=== PATIENT | female | born 1995 | race Asian ===

== ENCOUNTER 2024-01-08 16:56 | Emergency (ER) | payer OTHER, SELFPAY ==
[2024-01-08 16:59] VITALS: BP 115/80; PULSE 77; RESP 18; TEMP 36.5; O2SAT 98; BMI 25.8
--- NOTE | 2024-01-08 17:03 | ED_ITS ---
HPI - General Adult General Chief complaint: General Medical Stated complaint: needle stick work inj Time Seen by Provider: 01/08/24 16:57 Source: patient Mode of arrival: ambulatory Limitations: no limitations History of Present Illness ED Provider: Sp NEIL HPI narrative: 28-year-old female presents with accidental needlestick to the left dorsal aspect of risks, happened right prior to arrival, patient's stuck herself with a dirty IV needle, patient reports she stuck herself it bled just a little bit. Patient's HIV, hepatitis status is unclear but according to nurse she does not think that patient has any of these. Patient does not have a personal history of HIV or hepatitis-C. She is vaccinated against hepatitis-B. The area was washed immediately after. No history of liver problems. Unlikely she is . Denies numbness and tingling. Related Data Allergies Allergy/AdvReac Type Severity Reaction Status Date / Time No Known Allergies Allergy Verified 01/08/24 17:01 Review of Systems 2 Review of Systems: Yes all other systems are reviewed and are negative [facility] Past Medical History Attestation statement: The following information was validated with the patient. Source: old records reviewed and nursing notes reviewed Social History Social History Advance Directives: No Advance Directives Information Provided: No Physical Exam ED Vital Signs: Vital Signs - 24 hr 01/08/24 16:59 01/08/24 17:45 Temperature 97.7 F 97.7 F Pulse Rate 77 77 Respiratory Rate 18 18 Blood Pressure 115/80 115/80 Pulse Oximetry 98 98 Oxygen Delivery Method Room Air Room Air BMI result Body Mass Index 25.8 vss Appearance: Alert.? Oriented X3.? No acute distress.? Head: Normocephalic, atraumatic, no step-offs or deformities Eyes: Pupils equal, round and reactive to light.? ENT: Pharynx normal.? Neck: Normal inspection.? Neck supple.? CVS: Normal heart rate and rhythm.? Pulses normal.? Respiratory: No respiratory distress.? Breath sounds normal.? Skin: Skin warm and dry.? Normal skin color.? Normal skin turgor.? + small puncture to left wrist dorsal aspect Extremities: /5 strength to bilateral upper and lower extremities Neuro: Oriented X 3.? No motor deficit.? No sensory deficit. CN 2-12 intact Course Course Course Narrative: RME: [employer] by AYANA Saldana. 28-year-old female presents to ED for needlestick. 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 Patient states she cleaned wound right after. Patient came to the ED to be evaluated. Patient states sources being tested. Labs ordered. Reevaluation(s) Reevaluation #1: I did have a long conversation with patient about options on post exposure prophylaxis meds taking them now versus waiting. Patient would like to wait until patient is results arrived, patient did give consent to obtain blood work to check his HIV and hepatitis panel. Patient will get blood work done will call her if any of the blood work is abnormal. She will give Boostrix shot today as she has not up-to-date. Educated patient on diagnosis and treatment plan, answered all question, patient verbalizes understanding. At this time patient will be discharged home, advised to return with new or worsening symptoms. Educated on worrisome signs and symptoms and when to return. At this time I feel comfortable discharge home. Time: 17:28 Reevaluation #2: HIV Needle Stick Risk Assessment Stratification Protocol (RASP) from [employer] on 01/08/2024 All calculations should be rechecked by clinician prior to use RESULT SUMMARY: <<0.001 % Or, 1 in [id number]. PEP treatment not indicated, according to the article. INPUTS: Source population ?> 1000 = Unknown HIV status: low-risk situation Inoculum type ?> 1 = Fresh blood Method of transmission ?> 100 = Deep transcutaneous with visible bleeding Volume of inoculum ?> 3 = Small (small-bore, hollow needle <22 g) Medications Administered Discontinued Medications Generic Name Dose Route Start Last Admin Trade Name Freq PRN Reason Stop Dose Admin Diphtheria/Tetanus/Acell Pertussis 0.5 ml 01/08/24 17:04 01/08/24 17:33 Diphth,Pertus(Acell),Tet Adult 0.5 Ml Syringe IM 01/08/24 17:05 0.5 ml .ONCE ONE Administration Medical Decision Making Medical Decision Making [facility] Narrative: 1726 28 year old female presents w/ accidental needle stick [employer] pe - + small puncture to left wrist dorsal aspect History and physical exam concerning for accidental hypodermic needle stick. Will rule out HIV, hepatitis. No history of either. Unlikely infection or abscess. No signs of neurovascular compromise or threat to limb Plan labs, urine, hepatitis and HIV panel. Differential Diagnosis Differential Diagnoses: The differential diagnosis associated with the presentation includes History and physical exam concerning for accidental hypodermic needle stick. Will rule out HIV, hepatitis. No history of either. Unlikely infection or abscess. No signs of neurovascular compromise or threat to limb Admission/Observation Consideration of admission/observation: Escalation of care including admission/observation considered [facility] Lab Data [facility] Lab Attestation statement: I reviewed the patient's lab results. 01/08/24 17:11 Labs: Lab Results 01/08/24 Range/Units 17:11 WBC 7.9 (4.8-10.8) X10*3/uL RBC 4.08 L (4.20-5.50) X10*6/uL Hgb 12.5 (12.0-16.0) g/dl Hct 36.8 L (37.0-47.0) % MCV 90.2 (80.0-98.0) fL MCH 30.6 (27.0-33.0) pg MCHC 34.0 (31.0-35.0) g/dl RDW 12.4 (11.0-16.0) % Plt Count 275 (160-400) X10*3/uL MPV 10.3 (9.4-12.3) fL Immature Gran % (Auto) 0.3 (0.0-0.4) % Neut % (Auto) 63.4 (45-73) % Lymph % (Auto) 26.8 (20-40) % [place] % (Auto) 5.2 (2-11) % Eos % (Auto) 3.9 (0-4) % Baso % (Auto) 0.4 (0-2) % Lymph # (Auto) 2.1 (1.2-4.9) X10*3/uL [place] # (Auto) 0.4 (0.1-1.2) X10*3/uL Eos # (Auto) 0.3 (0.0-0.4) X10*3/uL Baso # (Auto) 0.0 (0.0-0.2) X10*3/uL Abs Immat Gran (auto) 0.02 (0.00-0.03) X10*3/uL Absolute Neuts (auto) 5.0 (2.0-8.3) x10*3/uL Absolute Nucleated RBC 0.000 (0.0-0.012) X10*3/uL Nucleated RBC % (auto) 0.0 (0.0-0.2) /100WBC Total Bilirubin 0.2 (0.0-1.0) mg/dL Direct Bilirubin < 0.2 (0.0-0.5) mg/dL AST 23 (5-31) U/L ALT 25 (0-31) U/L Alkaline Phosphatase 79 (39-117) U/L Total Protein 7.3 (6.5-8.0) g/dL Albumin 4.4 (3.5-5.0) g/dL Lipase 20 (8-78) U/L Beta HCG, Quant < 2 mIU/mL Discharge Plan Discharge Clinical Impression: Accidental hypodermic needlestick injury, Work related injury Patient Disposition: Home, Self-Care Instructions: Needle Stick Injuries (ED) Additional Instructions: Take your medications as prescribed. If you were prescribed antibiotics today, it is important that you take your medication to their entirety, do not skip any doses, do not finish them early. Follow-up with your primary care provider this week. Return to the emergency department with new or worsening symptoms. Such as fevers, chills, chest pain, shortness of breath, nausea, vomiting, dizziness, headache, vision changes, lethargy In case of emergency call 911 Referrals: Physician,Unknown J [Primary Care Provider] - 2 days Stand Alone Forms: Work/School Release Interventions: ED Discharge Assessment Last Done: 01/08/24 17:45 Discharge Date/Time: 01/08/24 17:45 Print Language: Korean
[2024-01-08 17:14] LABS: MANUAL DIFF FLAG NO
[2024-01-08 17:16] LABS: Basophils Percent Auto 0.4 % (0-2); Eosinophils Absolute Auto 0.3 X10*3/uL (0.0-0.4); Eosinophils Percent Auto 3.9 % (0-4); Hematocrit 36.8 % (37.0-47.0); Hemoglobin 12.5 g/dl (12.0-16.0); Imm Gran Abs Auto 0.02 X10*3/uL (0.00-0.03); Imm Gran Pct Auto 0.3 % (0.0-0.4); Lymphocytes Absolute Auto 2.1 X10*3/uL (1.2-4.9); Lymphocytes Percent Auto 26.8 % (20-40); Mean Corpuscular Hemoglobin 30.6 pg (27.0-33.0); Mean Corpuscular Volume 90.2 fL (80.0-98.0); Mean Platelet Volume 10.3 fL (9.4-12.3); Monocytes Absolute Auto 0.4 X10*3/uL (0.1-1.2); Monocytes Percent Auto 5.2 % (2-11); Neutrophils Percent Auto 63.4 % (45-73); Platelet Count 275 X10*3/uL (160-400); Red Blood Count 4.08 X10*6/uL (4.20-5.50); Red Cell Distribution Width 12.4 % (11.0-16.0); White Blood Count 7.9 X10*3/uL (4.8-10.8)
[2024-01-08] MEDS: Diphth,Pertus(ACell),Tet Adult 0.5 ML SYRINGE IM (17:33)
[2024-01-08 17:43] LABS: Alanine Aminotransferase 25 U/L (0-31); Albumin Level 4.4 g/dL (3.5-5.0); Alkaline Phosphatase 79 U/L (39-117); Aspartate Amino Transferase 23 U/L (5-31); Bilirubin Direct < 0.2 mg/dL (0.0-0.5); Bilirubin Total 0.2 mg/dL (0.0-1.0); HCG Quantitative < 2 mIU/mL; Lipase 20 U/L (8-78); Total Protein 7.3 g/dL (6.5-8.0)
[2024-01-08 17:45] VITALS: BP 115/80; PULSE 77; RESP 18; TEMP 36.5; O2SAT 98
[2024-01-08 17:46] LABS: Appearance Urine Cloudy; Color Urine Yellow; Glucose Urine UA Negative (Negative); Leukocyte Esterase Urine Negative (Negative); Nitrite Urine Negative (Negative); PH 6.5 (5.0-9.0); Urine Blood Negative (Negative); Urine Ketones Negative (Negative); Urine Protein Negative (Neg-Trace)
[2024-01-09 03:52] LABS: HBS Num1 23.36 mIU/mL (0-7.99); HBc Num1 0.09 S/CO (0.00-0.79); HIV AB/AG Nonreactive (Nonreactive); HIV Num 1 0.05 S/CO (0.00-0.99); Hepatitis B Core Antibody Nonreactive (Nonreactive); Hepatitis B Surface Antigen Negative (Negative); ~HepC Num1 0.16 S/CO (0.00-0.79); ~Hepatitis B Surface Antibody REACTIVE (Nonreactive); ~Hepatitis C Antibody Nonreactive (Nonreactive)
== END 2024-01-08 17:45 | disposition home or self-care (01) ==
PROVIDERS: Physician Assistant; Emergency Provider Emergency Medicine
DX: S61.532A Puncture wound without foreign body of left wrist, initial encounter (principal); S61.512A Laceration without foreign body of left wrist, initial encounter; M25.532 Pain in left wrist; R10.2 Pelvic and perineal pain; Y28.9XXA Contact with unspecified sharp object, undetermined intent, initial encounter; Y93.9 Activity, unspecified; Y92.239 Unspecified place in hospital as the place of occurrence of the external cause; Y99.0 Civilian activity done for income or pay; Z23 Encounter for immunization; Z79.899 Other long term (current) drug therapy
CPT/HCPCS: 36415; 81003; 82248; 83690; 84702; 85025; 86704; 86706; 86803; 87340; 87389; 90471; 90715; 99282; 99284

== ENCOUNTER → 2024-01-12 13:42 | Outpatient (BNVA) | payer OTHER, SELFPAY | DX: Z77.21 Contact with and (suspected) exposure to potentially hazardous body fluids (principal) | CPT/HCPCS: 99203 ==